=== PATIENT | male | born 1995 | race Two or more races ===

== ENCOUNTER 2020-01-01 10:56 | Emergency (ER) | payer SELFPAY ==
[~2020-01-01] VITALS: Ht 188 cm; Wt 77.8 kg
[2020-01-01 10:58] VITALS: BP 135/80
[2020-01-01] MEDS ORDERED: OXYcodone/APAP 5/325MG TABLET PO ONE (12:00)
[2020-01-01] MEDS ORDERED: OXYcodone/APAP 5/325MG TABLET ONE (12:00)
[2020-01-01] MEDS ORDERED: FAMCICLOVIR 500 MG TABLET PO ONE (12:00)
--- NOTE | 2020-01-01 12:27 | NUR ---
[employer] PER [employer].
== END 2020-01-01 12:55 | disposition home or self-care (01) ==
LOC: ED 12:30
DX: B02.9 Zoster without complications (principal); R21 Rash and other nonspecific skin eruption; F17.200 Nicotine dependence, unspecified, uncomplicated
CPT/HCPCS: 99283